=== PATIENT | male | born 1960 | race Caucasian/White ===

== ENCOUNTER 2016-09-10 12:18 | Emergency (ER) | payer MEDICARE, OTHER ==
--- NOTE | ~2016-09-10 | EKG ---
PATIENT: RUPERT GATES UNIT #: [id number] Ventricular Rate: 67 BPM Atrial Rate: 67 BPM P-R Interval: 150 ms QRS Duration: 78 ms Q-T Interval: 414 ms QTC Calculation(Bezet): 437 ms P [place]: 33 degrees Calculated R [place]: 23 degrees Calculated T [place]: 46 degrees Diagnosis Line: Normal sinus rhythm Diagnosis Line: Normal ECG Diagnosis Line: No previous ECGs available Diagnosis Line: Confirmed by EWA DIEGO MD ([id number]) on Diagnosis Line: 09/12/2016 8:45:20 AM INTERPRETING MD: BRANDIE FERNANDEZ
[~2016-09-10 12:18] MED LIST: ALBUTEROL17 GM; ALBUTEROL17 GM INH; BENZONATATE PO; DEPAKOTE ER PO; DOXYCYCLINE HY100 M1 PO; LEXAPRO PO; LITHIUM PO; MAXZIDE 75/50 T1 TAB PO; SEROQUEL PO; TOPROL XL PO; WELLBUTRIN PO; ZITHROMAX PO
[2016-09-10 14:07] LABS: BUN/CREATININE RATIO 11.81; CREATININE SERUM 1.1 mg/dL (0.6-1.4); GLOM FILT RATE Estimated 75.2 mL/min (>60); POTASSIUM 4.2 mmol/L (3.5-5.1)
== END 2016-09-10 16:45 | disposition home or self-care (01) ==
LOC: CED 12:18
PROVIDERS: Emergency Medicine
DX: I10 Essential (primary) hypertension (principal); R42 Dizziness and giddiness; F17.200 Nicotine dependence, unspecified, uncomplicated; Z88.8 Allergy status to other drugs, medicaments and biological substances
CPT/HCPCS: 36415; 80048; 82947; 93005; 99283

== ENCOUNTER 2016-10-09 18:39 | Inpatient (IN) | payer MEDICARE, OTHER ==
--- NOTE | ~2016-10-09 | HP ---
Unit #: [id number] #: [id number] Patient: RUPERT GATES [id number] [facility]. [place], [place] [address] [id number] I MR#: [id number] NAME: RUPERT GATES. ROOM: 21341 Age: 56 Sex: M Admission Date: 10/09/2016 : 1960 Attending Physician: Antionette Easley M.D. Primary Care Physician: Saad Licona M.D. HISTORY AND PHYSICAL CHIEF COMPLAINT Lightheadedness, hyponatremia. HISTORY OF PRESENT ILLNESS This pleasant 56-year-old male with hypertension and bipolar disorder, is admitted for hyponatremia. The patient was prescribed Trileptal in August. Has been taking chlorthalidone. Had blood work performed yesterday and was called today telling him to go to the ER for hyponatremia. States that he developed postural lightheadedness yesterday. He presents to this emergency department today with a sodium of 111, potassium 2.9. His hematocrit is 27.6. He denies melena or hematochezia. Hemoccult was attempted in the ER but no stool in the vault. In the ER, he was bolused with a liter of saline and given p.o. potassium. Along with taking Trileptal and chlorthalidone, the patient also drinks three to four 24 ounce beers on an evening basis. PAST MEDICAL HISTORY 1. Hypertension. 2. Bipolar disorder. 3. Anxiety. 4. What sounds to be drainage of an empyema on the right in the . 5. Right rotator cuff repair. 6. Bilateral ankle ORIF. ALLERGIES 1. Latex. 2. Lisinopril causes cramps. HOME MEDICATIONS 1. Chlorthalidone which was stopped yesterday. 2. Seroquel 400 mg h.s. 3. Trileptal 600 mg b.i.d. 4. Inderal LA 80 mg t.i.d. 5. Diovan 80 mg daily. SOCIAL HISTORY The patient lives alone. He was smoking cigarettes until one month. Now smokes about 4 cigars each day but does not inhale. He drinks three or four beers on an evening basis, 24 ounces each, does not use illicit drugs. FAMILY HISTORY Hypertension. Unit #: [id number] #: [id number] Patient: RUPERT GATES REVIEW OF SYSTEMS Notable for postural lightheadedness, hypertension, bipolar disorder, anxiety, tobacco use, above-mentioned surgeries. All other systems were reviewed and are otherwise negative. PHYSICAL EXAMINATION VITAL SIGNS: Temperature 97.7, pulse 67, respirations 18, blood pressure 126/66, O2 saturation 99% on room air. GENERAL: Pleasant, 56-year-old male currently in no acute distress. HEENT: Eyes PERRLA. Extraocular muscles are intact. Pharynx benign. NECK: Supple without adenopathy or thyromegaly. CHEST: Clear. HEART: Normal S1, S2 without murmur. ABDOMEN: Bowel sounds are present. No definite hepatosplenomegaly, tenderness or masses. EXTREMITIES: Without edema. Pedal pulses are somewhat diminished. RECTAL: Attempted but no stool in the rectal vault. NEUROLOGIC: Awake, alert, oriented. Cranial nerves are intact. Equal strength throughout. DIAGNOSTIC STUDIES LABORATORY: Hematocrit is 27.6, MCV 75, normal white count and platelet count. SMA-12 sodium 111, potassium 2.9. Coags normal. ASSESSMENT 1. Hyponatremia, multifactorial secondary to Trileptal, beer consumption and chlorthalidone. 2. Hypokalemia secondary to beer consumption and chlorthalidone. 3. Microcytic anemia. No stool in the rectal vault to Hemoccult. 4. Bipolar disorder. 5. Daily alcohol use. 6. Hypertension. PLAN 1. Low dose saline. Will monitor sodium carefully. Check urine sodium, chest x-ray and TSH. Discontinue Trileptal and thiazide diuretic. 2. Anemia workup, start proton pump inhibitor. Will need gastroenterology to see at some point when stable. 3. Replace potassium and check magnesium. 4. Vitamins and p.r.n. Ativan. 5. SCDs for DVT prophylaxis. Dictated by Antionette Easley M.D. AML/cs TD: 10/09/2016 23:53 JOB #: [id number] Unit #: [id number] #: [id number] Patient: RUPERT GATES HISTORY AND PHYSICAL Page 1 of 1 X Antionette Easley MD HISTORY AND PHYSICAL
--- NOTE | ~2016-10-09 | CO ---
Unit #: [id number] #: [id number] Patient: RUPERT BARRETT [id number] [facility]. [place], [place] [address] [id number] I MR#: [id number] NAME: RUPERT BARRETT. ROOM: 329 Age: 56 Sex: M Admission Date: 10/09/2016 : 1960 Attending Physician: Gely Vaca M.D. Primary Care Physician: Saad Licona M.D. Consultation Date: 10/10/2016 CONSULTATION REPORT REASON FOR CONSULTATION Low sodium. Thank you very much for asking me to see this patient in consultation. HISTORY OF PRESENT ILLNESS Mr. Rupert Barrett is a 56-year-old male, who apparently was feeling weak and tired, went to primary physician, at which time, the labs were done and the patient was called because of low sodium where he presented to the emergency room last night with a sodium of 111, that was 110 at 1:00 a.m. The patient was started on normal saline. The patient states he has never had any problems with his sodium before that he knows of. He does have a history of bipolar disorder and was started on Trileptal he says in August of this year. At that time, apparently he states he was started on chlorthalidone for hypertension. He also is a very heavy alcohol drinker. He drinks 4 to 6 cans of beer a day and then asked him how big the cans are, they are each 24 ounces. He denies any chest pain, shortness of breath, nausea, vomiting, or diarrhea. PAST MEDICAL HISTORY History of bipolar disorder; history of hypertension past 3 or 4 years; history of bilateral ankle surgery in the past; history of anxiety; history of severe pneumonia in the s, sounds like possible empyema at that time. SOCIAL HISTORY He lives alone. He is on disability. He drinks again anywhere 4 to 6 24 ounces of beer a day. He also has smoked cigarettes and questionably stopped one month ago and intermittent cigars now. ALLERGIES Include lisinopril, cramps; and latex. REVIEW OF SYSTEMS He denies any severe headaches or dizziness, visual problems, sinus problems. No cough or hemoptysis. No neck pain or neck stiffness. He denies any chest pain, chest heaviness, or palpitations. No severe shortness of breath. No severe abdominal pain, nausea, vomiting, or diarrhea. He denies any urinary symptoms starting, stopping, or burning. He denies any lower extremity swelling. Now he says he occasionally has had it. He denies any recent seizures, strokes, or skin rashes. Just severe weakness. FAMILY HISTORY Unit #: [id number] #: [id number] Patient: RUPERT BARRETT Noncontributory. MEDICATIONS At home included Seroquel, Trileptal since August, Inderal, Diovan, and chlorthalidone since August. PHYSICAL EXAMINATION GENERAL: He is alert and oriented. VITAL SIGNS: Temperature is 97.7, pulse is 67 to 75, blood pressure 126 to 194 over 66 to 92. HEENT: Normocephalic and atraumatic. Pupils are equal, round, and reactive to light. Extraocular muscles are intact. Hearing appears to be normal. His mouth is clear. No erythema. No exudate. NECK: Supple. No JVD. CARDIAC: He has a regular rate and rhythm without a rub. No S3 or S4. LUNGS: Do have few bilateral wheezes. ABDOMEN: Bowel sounds positive. Nontender. Soft. Mild distention. No rebound or guarding. EXTREMITIES: He has no lower extremity swelling. His pulses are intact in upper and lower extremities. JOINTS: No joint pain or joint swelling. SKIN: No rashes. NEUROLOGIC: Appears to be intact motor and sensory grossly. : Deferred. DIAGNOSTIC STUDIES LABORATORY RESULTS: Upon admission; he had a sodium of 111 and potassium of 2.9. This morning, his sodium was 119, potassium is up to 4, chloride is 83, bicarb is 28, BUN of 13, creatinine 1.0 with glucose of 90, calcium is 9.0, magnesium is 1.7, albumin is 3. T saturation on iron is 2. Urine sodium is 10. Hemoglobin is 8.9, white count 6900, platelets 142,000. His UA shows specific gravity of 1.008, 2+ protein and in 2011, he had 3+ protein. He has 0 to 2 rbc's and 0 to 2 wbc's. ASSESSMENT AND PLAN 1. Severe hyponatremia. The patient with sodium of 111 upon presentation at 8:00 p.m. and at 1:00 a.m., it was 110 and although 4:30, it was up to 119. Certainly, his hyponatremia is a combination of severe beer intake and low albumin. He drinks anywhere from 100 to 150 ounces of beer a day. Also chlorthalidone is probably played a role in his hyponatremia as well and would avoid thiazide diuretics in the future and he also is on Trileptal which also can cause a syndrome of inappropriate antidiuretic hormone secretion type picture. Certainly, I would like to change his fluids from normal saline that he is on now D5W currently at 75 due to the fact that his sodium has increased a little more rapidly than what I would like to increase it. We will check TSH and a.m. cortisol level and check urine osmolarity. He also had severe potassium depletion which can also cause cellular shifts of sodium from extracellular to intracellular contributing to his hyponatremia. Certainly, if his sodium normalizes and he quits drinking beer and he has to have his Trileptal that would be the one you could consider re-adding at some point and follow his sodium closely, but certainly reduce alcohol intake, stop his thiazide diuretics, etc. 2. Hypertension. Blood pressure is a little bit up this morning. He is back on his Inderal and his Diovan certainly with his probable alcohol withdrawal. This will be a problem and we will put him on some p.r.n. clonidine as well for hypertension. 3. Proteinuria. The patient with 2+ protein on UA. Upon admission, Unit #: [id number] #: [id number] Patient: RUPERT BARRETT although no hematuria and no wbc's in his urine. He did have protein in 2011 as well. Check a protein to creatinine ratio to see how much protein he really has. Check an SPEP depending on what his proteinuria shows depending on further workup and treatment. 4. Bipolar disorder, again hold Trileptal for now. 5. Severe EtOH abuse. 6. Anemia with iron deficiency per primary. Dictated by.Nicole Soto M.D. MARY KAY/mathieu TD: 10/11/2016 03:23 JOB #: [id number] CONSULTATION REPORT Page 1 of 1 X Nixon Soto MD CONSULTATION REPORT
--- NOTE | ~2016-10-09 | DS ---
Unit #: [id number] #: [id number] Patient: RUPERT GATES [id number] [address] [id number] I MR#: [id number] NAME: RUPERT GATES. ROOM: 329 Age: 56 Sex: M Admission Date: 10/09/2016 : 1960 Discharge Date: 10/12/2016 Attending Physician: Gely Vaca M.D. Primary Care Physician: Saad Licona M.D. DISCHARGE SUMMARY DIAGNOSIS ON ADMISSION Hyponatremia. DIAGNOSES ON DISCHARGE 1. Hyponatremia, multifactorial, secondary to diuretics and excessive alcohol intake. 2. History of microcytic anemia: Stool for occult blood negative. 3. Bipolar disorder. 4. Alcohol abuse. 5. Hypertension. 6. Anxiety disorder. 7. Iron deficiency anemia. CONSULTATIONS Dr. Soto - Renal. LABS AND PROCEDURES DONE The patient's creatinine is 1.2, potassium 4.3, sodium 127. It was 111 on admission. Magnesium level is 1.8. AST and ALT within normal limits. Vitamin B12 level is 445, folate level is 6.3, ferritin level was 12. Transferrin level was 285. Transferrin saturation was 2 and TIBC was 399. WBC 6.1, hemoglobin 8.8, platelet count 455. Serum cortisol level was 5. TSH level was 1.3. The patient's chest x-ray did not reveal any acute chest findings. HOSPITAL COURSE 56-year-old male was admitted to the hospital with severe hyponatremia. Details are as per admission H and P. The patient was seen by Dr. Soto in consultation. The patient was treated with IV fluids. His sodium level is [address] Soto has recommended that patient can be discharged home and follow up with him on an outpatient basis. Proteinuria: The patient will follow up with Dr. Soto on an outpatient basis. Unit #: [id number] #: [id number] Patient: RUPERT GATES Alcohol abuse: The patient is advised to follow up with [facility]. He is promising that he will not drink again. Bipolar disorder: The patient is advised to follow up with his psychiatrist. Iron deficiency anemia: The patient's stool for occult blood was negative but his iron profile is low. I will discharge him on iron sulfate and we will give him a number for Dr. Moody to follow up on an outpatient basis for further workup with endoscopes. I will also discharge patient on proton pump inhibitor because of his significant history of alcohol abuse as he could have gastritis. Today, patient is comfortable. He is anxious to go home. RECOMMENDATIONS ON DISCHARGE 1. Condition is stable. 2. Activity is as tolerated. 3. Medications are: a) Trileptal 300 mg p.o. b.i.d. b) Seroquel 800 mg p.o. q. h.s. Please make note that patient was very adamant to continue both of the medications at home dose. c) Inderal 80 mg p.o. t.i.d. p.r.n. which, as per patient, he uses it for anxiety as needed. d) Diovan 80 mg p.o. daily. e) Multivitamin, one tab p.o. daily. f) Thiamine 100 mg p.o. daily. g) Prilosec 20 mg p.o. daily. 4. Followup - patient is advised to follow up with primary care physician in one week and have a CBC and BMP done and to follow up on anemia with primary care physician. The patient is advised to follow up with Dr. soto as recommended. 5. The patient was also advised to call and schedule an appointment with Dr. Moody for followup on iron deficiency anemia. 6. The patient is advised to follow up with [facility] for alcohol abuse. The plan was discussed in detail with patient who showed complete understanding due to the fact that his noncompliance can lead to worsening of his condition and can lead to possible and permanent disability. I am not sure if patient will follow up, but he is promising. Dictated by... Lexi Storm TD: 10/12/2016 10:40 JOB #: [id number] [facility]i Gandhi M.D. Unit #: [id number] #: [id number] Patient: RUPERT GATES DISCHARGE SUMMARY Page 1 of 1 X Gely Vaca MD DISCHARGE SUMMARY
--- NOTE | ~2016-10-09 | CR63 ---
[facility] A Service of [facility] & [facility] RADIOLOGY TEXT RESULTS PATIENT: RUPERT GATES LOCATION: [facility] 329-01 : [birth year] UNIT #: [id number] AGE: [address]: Gely Vaca MD SEX: M ORDER DR: [id number] [facility] [address] [facility]. [place], [place] [address] [id number] I MR#: [id number] Acc #: [id number] NAME: RUPERT GATES. : 1960 SEX: M STUDY DATE/TIME: 10/10/2016 8:15 UNIT: [address] ROOM: [facility] hospital STUDY DESCRIPTION: CR Chest 2 View Attending Physician: Gely Vaca M.D. Ordering Physician: Antionette Easley M.D. Primary Care Physician: Saad Licona M.D. MEDICAL IMAGING REPORT This report is preliminary unless electronic signature is present EXAM Chest, 10/10/2016 HISTORY 56-year-old male patient generalized weakness, low sodium. Symptoms x1 day. Additional history of right lung mass. COMPARISON Chest, 04/29/2016 FINDINGS Two-view chest demonstrates normal heart size. Hilar structures and mediastinal contours are preserved. Lungs are expanded and remain clear. No identified lung mass or infiltrate. Small stable calcified granuloma right upper lobe. IMPRESSION Negative chest. No acute chest finding. Dictated by... Kev Self M.D. THIS IS AN ELECTRONICALLY VERIFIED REPORT Kev Self M.D. at 10/10/2016 12:30 PM Jennifer TD: 10/10/2016 12:13 JOB #: [id number] MEDICAL IMAGING REPORT Page 1 of 1 COPY
[2016-10-09 20:41] LABS: BASOPHIL# 0.2 X10e3 (0-0.3); BASOPHIL% 1.8 % (0-2.5); DIFF IND NO; EOSINOPHIL# 0.3 X10e3 (0-0.7); EOSINOPHIL% 3.1 % (0.0-7.0); HEMATOCRIT 27.6 % (38.0-50.0); LYMPHOCYTE# 1.7 X10e3 (1.0-3.5); LYMPHOCYTE% 19.8 % (17.0-45.0); MEAN CELL VOLUME 75.8 FL (83-96); MEAN CORPUSCULAR HEMOGLOBIN 24.6 PG (28-34); MEAN CORPUSCULAR HGB CONC 32.5 g/dL (30-36); MEAN PLATELET VOLUME 7.3 FL (6.5-11.5); MONOCYTE# 0.7 X10e3 (0-1.0); MONOCYTE% 8.4 % (3.0-12.0); NEUTROPHIL# 5.9 X10e3 (1.5-7.1); NEUTROPHIL% 66.9 % (40-75); PLATELET COUNT 467 X10e3 (140-420); RED BLOOD COUNT 3.64 X10e (3.90-5.60); RED CELL DISTRIBUTION WIDTH 17.6 % (11.0-15.5); WHITE BLOOD COUNT 8.8 X10e3 (4.0-10.5)
[2016-10-09 20:56] LABS: BILIRUBIN, DIRECT 0.1 mg/dL (0.0-0.2); BILIRUBIN,INDIRECT 0.6 mg/dL (0.0-0.9); BILIRUBIN,TOTAL 0.7 mg/dL (0.2-2.0); BUN/CREATININE RATIO 11.81; CALCIUM SERUM 9.1 mg/dL (8.4-10.2); CREATININE SERUM 1.1 mg/dL (0.6-1.4); GLOM FILT RATE Estimated 75.2 mL/min (>60); INR 0.9; PARTIAL THROMBOPLASTIN TIME 29.7 SECONDS (23.5-31.3); PROTEIN TOTAL SERUM 6.6 g/dL (6.0-8.3)
[2016-10-09 20:58] LABS: POTASSIUM 2.9 mmol/L (3.5-5.1)
[2016-10-09] MEDS ORDERED: SEROQUEL XR400 M1 PO (22:08)
[2016-10-09] MEDS ORDERED: INDERAL XL80 MG PO (22:09)
[2016-10-09] MEDS ORDERED: TRILEPTAL600 MG PO (22:09)
[2016-10-09] MEDS ORDERED: DIOVAN80 M1 PO (22:10)
[2016-10-10 01:14] LABS: CALCIUM SERUM 8.5 mg/dL (8.4-10.2); GLOM FILT RATE Estimated 84.4 mL/min (>60)
[2016-10-10 01:18] LABS: POTASSIUM 2.8 mmol/L (3.5-5.1)
[2016-10-10 05:46] LABS: HEMATOCRIT 27.6 % (38.0-50.0); HEMOGLOBIN 8.9 gm/dL (13.0-16.0); MEAN CELL VOLUME 76.3 FL (83-96); MEAN CORPUSCULAR HEMOGLOBIN 24.6 PG (28-34); MEAN CORPUSCULAR HGB CONC 32.3 g/dL (30-36); MEAN PLATELET VOLUME 7.7 FL (6.5-11.5); RED BLOOD COUNT 3.62 X10e (3.90-5.60); RED CELL DISTRIBUTION WIDTH 17.4 % (11.0-15.5); WHITE BLOOD COUNT 6.9 X10e3 (4.0-10.5)
[2016-10-10 06:14] LABS: URINE SOURCE CLEAN CATCH
[2016-10-10 06:36] LABS: GLOM FILT RATE Estimated 84.4 mL/min (>60); MAGNESIUM 1.7 mg/dL (1.6-3.0)
[2016-10-10 06:37] LABS: URINE APPEARANCE CLEAR; URINE BILIRUBIN NEG (NEG); URINE BLOOD NEG (NEG); URINE COLOR YELLOW; URINE GLUCOSE NEG (NEG); URINE KETONE NEG (NEG); URINE LEUKOCYTE ESTERASE NEG (NEG); URINE NITRATE NEG (NEG); URINE PH 7.5 (5-8); URINE PROTEIN 2+ (NEG); URINE SPECIFIC GRAVITY 1.006 (1.003-1.035); URINE UROBILINOGEN 0.2 MG/DL (NEG)
[2016-10-10 06:43] LABS: URBCS1 AUWI 0-2 /[HPF] (0-2); URINE BACTERIA AUWI NEG (NEGATIVE); URINE SQUAMOUS EPITHELIAL CELL NONE SEEN /[HPF]; UWBCS1 AUWI 0-2 (0-5)
[2016-10-10 06:47] LABS: FOLATE (FOLIC ACID) 6.3 ng/mL (>5.8)
[2016-10-10 10:50] LABS: BUN/CREATININE RATIO 15.55; CALCIUM SERUM 8.5 mg/dL (8.4-10.2); CREATININE SERUM 0.9 mg/dL (0.6-1.4); GLOM FILT RATE Estimated 95.8 mL/min (>60); POTASSIUM 3.1 mmol/L (3.5-5.1)
[2016-10-10 11:26] LABS: CREATININE,RANDOM URINE 25 mg/dL; TOTAL PROTEIN,RANDOM URINE 139 mg/dl (<10)
[2016-10-10 15:55] LABS: BUN/CREATININE RATIO 13.63; CALCIUM SERUM 8.5 mg/dL (8.4-10.2); CREATININE SERUM 1.1 mg/dL (0.6-1.4); GLOM FILT RATE Estimated 75.2 mL/min (>60); POTASSIUM 3.8 mmol/L (3.5-5.1)
[2016-10-10 20:00] LABS: BUN/CREATININE RATIO 14.54; CALCIUM SERUM 8.3 mg/dL (8.4-10.2); CREATININE SERUM 1.1 mg/dL (0.6-1.4); GLOM FILT RATE Estimated 75.2 mL/min (>60); POTASSIUM 3.8 mmol/L (3.5-5.1)
[2016-10-10 23:26] LABS: BUN/CREATININE RATIO 14.54; CALCIUM SERUM 8.4 mg/dL (8.4-10.2); CREATININE SERUM 1.1 mg/dL (0.6-1.4); GLOM FILT RATE Estimated 75.2 mL/min (>60); POTASSIUM 3.9 mmol/L (3.5-5.1)
[2016-10-11 03:09] LABS: HEMATOCRIT 27.3 % (38.0-50.0); HEMOGLOBIN 8.7 gm/dL (13.0-16.0); MEAN CELL VOLUME 77.5 FL (83-96); MEAN CORPUSCULAR HEMOGLOBIN 24.6 PG (28-34); MEAN CORPUSCULAR HGB CONC 31.7 g/dL (30-36); MEAN PLATELET VOLUME 7.4 FL (6.5-11.5); RED BLOOD COUNT 3.52 X10e (3.90-5.60); RED CELL DISTRIBUTION WIDTH 17.4 % (11.0-15.5); WHITE BLOOD COUNT 6.8 X10e3 (4.0-10.5)
[2016-10-11 03:47] LABS: ALBUMIN SERUM 2.8 g/dL (3.5-5.0); BILIRUBIN,TOTAL 0.5 mg/dL (0.2-2.0); BUN/CREATININE RATIO 12.5; CALCIUM SERUM 8.4 mg/dL (8.4-10.2); CREATININE SERUM 1.2 mg/dL (0.6-1.4); GLOM FILT RATE Estimated 67.7 mL/min (>60); MAGNESIUM 1.7 mg/dL (1.6-3.0); PHOSPHOROUS 2.6 mg/dL (2.5-4.6); POTASSIUM 3.6 mmol/L (3.5-5.1); PROTEIN TOTAL SERUM 6.2 g/dL (6.0-8.3)
[2016-10-11 09:02] LABS: BUN/CREATININE RATIO 10.76; CALCIUM SERUM 8.5 mg/dL (8.4-10.2); CREATININE SERUM 1.3 mg/dL (0.6-1.4); GLOM FILT RATE Estimated 61.4 mL/min (>60); POTASSIUM 3.4 mmol/L (3.5-5.1)
[2016-10-11 17:46] LABS: BUN/CREATININE RATIO 14.16; CALCIUM SERUM 8.7 mg/dL (8.4-10.2); CREATININE SERUM 1.2 mg/dL (0.6-1.4); GLOM FILT RATE Estimated 67.7 mL/min (>60); POTASSIUM 4.4 mmol/L (3.5-5.1)
[2016-10-11 20:33] LABS: URINE APPEARANCE CLEAR; URINE BILIRUBIN NEG (NEG); URINE BLOOD NEG (NEG); URINE COLOR YELLOW; URINE GLUCOSE NEG (NEG); URINE KETONE NEG (NEG); URINE LEUKOCYTE ESTERASE NEG (NEG); URINE NITRATE NEG (NEG); URINE PROTEIN 3+ (NEG); URINE SPECIFIC GRAVITY 1.008 (1.003-1.035); URINE UROBILINOGEN 0.2 MG/DL (NEG)
[2016-10-11 20:36] LABS: URBCS1 AUWI 0-2 /[HPF] (0-2); URINE BACTERIA AUWI NEG (NEGATIVE); URINE SQUAMOUS EPITHELIAL CELL NONE SEEN /[HPF]; UWBCS1 AUWI 0-2 (0-5)
[2016-10-11 21:04] LABS: CREATININE,RANDOM URINE 59 mg/dL; TOTAL PROTEIN,RANDOM URINE 147 mg/dl (<10)
[2016-10-12 06:17] LABS: HEMATOCRIT 28.1 % (38.0-50.0); HEMOGLOBIN 8.8 gm/dL (13.0-16.0); MEAN CELL VOLUME 78.3 FL (83-96); MEAN CORPUSCULAR HEMOGLOBIN 24.6 PG (28-34); MEAN CORPUSCULAR HGB CONC 31.4 g/dL (30-36); MEAN PLATELET VOLUME 7.7 FL (6.5-11.5); RED BLOOD COUNT 3.59 X10e (3.90-5.60); RED CELL DISTRIBUTION WIDTH 17.7 % (11.0-15.5); WHITE BLOOD COUNT 6.1 X10e3 (4.0-10.5)
[2016-10-12 07:01] LABS: BUN/CREATININE RATIO 13.33; CALCIUM SERUM 8.6 mg/dL (8.4-10.2); CREATININE SERUM 1.2 mg/dL (0.6-1.4); GLOM FILT RATE Estimated 67.7 mL/min (>60); MAGNESIUM 1.8 mg/dL (1.6-3.0); PHOSPHOROUS 3.1 mg/dL (2.5-4.6); POTASSIUM 4.3 mmol/L (3.5-5.1)
[2016-10-12] MEDS ORDERED: THIAMINE HCL100 M1 PO (13:38)
[2016-10-12] MEDS ORDERED: MULTI-DAY VITA1 EACH PO (13:38)
[2016-10-12] MEDS ORDERED: PRILOSEC PO (13:39)
[2016-10-12] MEDS ORDERED: FEOSOL PO (13:39)
[2016-10-13 17:05] LABS: COMPLEMENT C3 122 mg/dL (90-180); COMPLEMENT C4 23 mg/dL (16-47)
[2016-10-18 20:21] LABS: ANA SCREEN Negative (Negative); HEP C AB (HEPPAN) Reactive (Nonreactive)
== END 2016-10-12 15:03 | disposition home or self-care (01) | DRG 641 ==
LOC: CED 18:39 → C3A PCU 23:06 → CEDOF 23:06 → CED 23:06 → CEDOF 23:10 → C3A PCU 10-10 00:51 → CEDOF 10-10 00:51 → C3A PCU 10-10 07:59
PROVIDERS: Emergency Medicine; Internal Medicine; Internal Medicine Nephrology
DX: E87.1 Hypo-osmolality and hyponatremia (principal); I10 Essential (primary) hypertension; E87.6 Hypokalemia; D50.9 Iron deficiency anemia, unspecified; F10.10 Alcohol abuse, uncomplicated; F31.9 Bipolar disorder, unspecified; F41.9 Anxiety disorder, unspecified; Z91.040 Latex allergy status; R80.9 Proteinuria, unspecified
CPT/HCPCS: 36415; 71020; 80048; 80053; 80076; 81003; 82274; 82533; 82570; 82607; 82728; 82746; 83540; 83550; 83735; 83930; 83935; 84100; 84156; 84300; 84443; 85025; 85027; 85610; 85730; 86038; 86039; 86060; 86160; 86334; 86705; 86707; 86803; 87340; 87350; 96360; 99285; J3475